=== PATIENT | male | born 1990 | race Caucasian/White ===

== ENCOUNTER 2022-07-25 10:52 | Emergency (ER) | payer OTHER ==
[2022-07-25] MEDS ORDERED: HYDROmorphone 1 MG/ML Syringe IM ONE (11:20)
== END 2022-07-25 11:35 | disposition home or self-care (01) ==
LOC: JD.ED 10:52
DX: K04.7 Periapical abscess without sinus (principal); I10 Essential (primary) hypertension; Z88.2 Allergy status to sulfonamides; Z88.1 Allergy status to other antibiotic agents
CPT/HCPCS: 96372; 99283; J1170

== ENCOUNTER 2022-09-23 17:26 | Emergency (ER) | payer OTHER ==
[2022-09-23] MEDS ORDERED: Midazolam 5 MG/ML 10 ML MDV ONE (17:34)
[2022-09-23 18:05] LABS: BASOPHILS ABSOLUTE AUTO 0.02 K/mm3 (0.01-0.08); BASOPHILS PERCENT AUTO 0.2 % (0.1-1.2); EOSINOPHILS ABSOLUTE AUTO 0.01 K/mm3 (0.04-0.54); EOSINOPHILS PERCENT AUTO 0.1 (0.8-7.0); HEMATOCRIT 44.4 % (40.1-51.0); HEMOGLOBIN 15.5 gm/dl (13.7-17.5); IMMATURE GRAN ABSOLUTE AUTO 0.02 K/mm3 (0.00-0.10); IMMATURE GRAN PERCENT AUTO 0.2 % (<=1.0); LYMPHOCYTES ABSOLUTE AUTO 3.98 K/mm3 (1.32-3.57); LYMPHOCYTES PERCENT AUTO 47.2 % (21.8-53.1); MEAN CORPUSCULAR HEMOGLOBIN 30.4 pg (25.7-32.2); MEAN CORPUSCULAR HGB CONC 34.9 g/dl (32.2-35.5); MEAN CORPUSCULAR VOLUME 87.1 fl (79.0-92.2); MONOCYTES PERCENT AUTO 4.7 % (5.3-12.2); NEUTROPHILS PERCENT AUTO 47.6 % (34.0-67.9); PLATELET COUNT,PLT 374 K/mm3 (163-337); WHITE BLOOD CELL COUNT,WBC 8.43 K/mm3 (4.23-9.07)
[2022-09-23 18:10] LABS: INR 1.01; PROTHROMBIN TIME 10.8 SECONDS (9.7-12.0)
[2022-09-23 18:12] LABS: PTT,PARTIAL THROMBOPLSTIN TIME 25.3 SECONDS (21.7-31.4)
[2022-09-23 18:14] LABS: A/G RATIO 1.1 (1-2); ALANINE AMINOTRANSFERASE,ALT 29 U/L (16-63); ALBUMIN 4.1 g/dl (3.4-5.0); ALKALINE PHOSPHATASE 84 U/L (46-116); ANION GAP 16.7 (5-15); BILIRUBIN TOTAL 0.5 mg/dL (0.2-1.0); BLOOD UREA NITROGEN,BUN 14 mg/dL (7-18); BUN/CREATININE RATIO 12.7 (14-18); CALCIUM 8.6 mg/dL (8.5-10.1); CARBON DIOXIDE,CO2 25 mEq/L (21-32); CHLORIDE,CL 105 mEq/L (98-107); CREATININE 1.1 mg/dL (0.7-1.3); ESTIMATED GFR 92 mL/min (>60); ETHANOL BLOOD MEDICAL 0.25 gm% (0.00); GLUCOSE RANDOM 104 mg/dL (70-99); PROTEIN TOTAL,TP 7.7 g/dl (6.4-8.2); SODIUM,NA 143 mEq/L (136-145)
[2022-09-23] MEDS: propofoL 100 ML IV SCH ×3 (18:18→23:14)
[2022-09-23] MEDS: Sodium Chloride 0.9% 1,000 ML IV SCH (18:18)
[2022-09-23 18:19] LABS: ASPARTATE AMNIOTRANSFERASE,AST 46 U/L (15-37); POTASSIUM,K 3.7 mEq/L (3.5-5.1)
[2022-09-23] MEDS ORDERED: Sodium Chloride 0.9% 10 ML Syringe FLUSH ONE (18:32)
[2022-09-23] MEDS ORDERED: Iopamidol 612 MG/ML 100 ML Bottle IVPUSH ONE (18:32)
[2022-09-23 18:39] LABS: APPEARANCE,URINE CLEAR (Clear); BILIRUBIN,URINE NEGATIVE (Negative); COLOR,URINE YELLOW (Yellow); GLUCOSE,URINE NEGATIVE (Negative); KETONES,URINE NEGATIVE (Negative); LEUKOCYTE ESTERASE,URINE NEGATIVE (Negative); NITRITE,URINE NEGATIVE (Negative); OCCULT BLOOD,URINE 2+ (Negative); PROTEIN,URINE 1+ (Negative); UROBILINOGEN,URINE 0.2 (0.2-1.0)
[2022-09-23 18:47] LABS: BARBITURATE SCREEN,URINE NEGATIVE (CUTOFF=200); BENZODIAZEPINES SCREEN,URINE NEGATIVE (CUTOFF=150); BUPRENORPHINE SCREEN,URINE NEGATIVE (CUTOFF=10); METHADONE SCREEN, URINE NEGATIVE (CUT0FF=200); METHAMPHETAMINES SCREEN, URINE NEGATIVE (CUTOFF=500); OXYCODONE SCREEN,URINE NEGATIVE (CUT0FF=100); PROPOXYPHENE SCREEN,URINE NEGATIVE (CUTOFF=300); THC SCREEN,URINE 20 NG/ML PRESUMPTIVE POSITIVE (CUTOFF=50)
[2022-09-23 18:51] LABS: BASE EXCESS ARTERIAL -1.5 (-2-2.0); BICARBONATE,ARTERIAL 24.9 meq/L (22.0-26.0); O2 SATURATION ARTERIAL 98.8 % (96.0-97.0); PCO2 ARTERIAL 50.9 mmHg (35.0-45.0)
[2022-09-23 18:58] LABS: AMPHETAMINES SCREEN, URINE NEGATIVE (CUTOFF=500)
[2022-09-23] MEDS ORDERED: Midazolam 1 MG/ML 5 ML SDV ONE (19:00)
[2022-09-23] MEDS ORDERED: Propofol 200 MG/20 ML SDV ONE (19:00)
[2022-09-23] MEDS ORDERED: Rocuronium 50 MG/5 ML Vial ONE (19:00)
[2022-09-23] MEDS ORDERED: Etomidate 2 MG/ML 20 ML SDV IVPUSH ONE (19:00)
[2022-09-23 19:42] LABS: BASE EXCESS ARTERIAL -1.3 (-2-2.0); BICARBONATE,ARTERIAL 25.3 meq/L (22.0-26.0); O2 SATURATION ARTERIAL 96.5 % (96.0-97.0); PCO2 ARTERIAL 52.3 mmHg (35.0-45.0)
[2022-09-23 22:24] LABS: BASE EXCESS ARTERIAL -2.5 (-2-2.0); BICARBONATE,ARTERIAL 23.8 meq/L (22.0-26.0); O2 SATURATION ARTERIAL 99.1 % (96.0-97.0)
[2022-09-24] MEDS: Sodium Chloride 0.9% 1,000 ML IV SCH (00:02)
[2022-09-24] MEDS: propofoL 100 ML IV SCH (01:34)
[2022-09-24] MEDS ORDERED: Albuterol/Ipratropium 3.0-0.5 MG/3 ML Neb Soln ONE (02:22)
[2022-09-24] MEDS ORDERED: HYDROmorphone 0.5 MG/0.5 ML Syringe IVPUSH ONE (02:34)
[2022-09-24] MEDS ORDERED: HYDROmorphone 0.5 MG/0.5 ML Syringe ONE (02:35)
[2022-09-24] MEDS ORDERED: Acetaminophen/oxyCODONE 325-5 MG Tab PO ONE (04:26)
[2022-09-24] MEDS ORDERED: Acetaminophen 325 MG Tab PO ONE (04:26)
== END 2022-09-24 04:40 | disposition home or self-care (01) ==
LOC: JD.ED 17:26
DX: S06.0X1A Concussion with loss of consciousness of 30 minutes or less, initial encounter (principal); S00.81XA Abrasion of other part of head, initial encounter; S40.211A Abrasion of right shoulder, initial encounter; S50.811A Abrasion of right forearm, initial encounter; S80.212A Abrasion, left knee, initial encounter; M25.561 Pain in right knee; V89.2XXA Person injured in unspecified motor-vehicle accident, traffic, initial encounter
CPT/HCPCS: 31500; 36415; 36600; 43752; 70450; 71045; 71260; 72125; 73562; 74177; 80053; 80306; 80307; 81003; 82803; 83605; 85025; 85610; 85730; 96361; 96374; 99285; A9270; J1170; J2250; J2704; J3490; J7030; Q9967